=== PATIENT | female | born 1960 | race Caucasian/White ===

== ENCOUNTER 2024-02-10 05:50 | Day surgery (SDC) | payer BC ==
[~2024-02-10] VITALS: Ht 162.6 cm; Wt 93.2 kg
[~2024-02-10 05:50] MED LIST: CELEXA20 MG PO; IBUPROFEN800 MG PO; LACTATED RINGER'S 1,000 ML IV SCH; LEVOTHYROXINE125 MCG PO; MELOXICAM5 MG PO; NORCO 5-325 TA1 EACH PO; TIROSINT100 MCG PO
[2024-02-10 06:11] VITALS: BP 131/67
[2024-02-10] MEDS ORDERED: propofoL 200 MG/20 ML VIAL ONE (06:36)
[2024-02-10] MEDS ORDERED: Ropivacaine HCl 0.5% 30 ML VIAL ONE (06:36)
[2024-02-10] MEDS ORDERED: LIDOCAINE HCL 2% 20 MG/ML VIAL INJ ONE (06:36)
[2024-02-10] MEDS ORDERED: HYDROCODONE/ACETA 5/325 TAB PO PRN (07:00)
[2024-02-10] MEDS ORDERED: CEFAZOLIN SODIUM 2 GM/20 ML SYR IV SCH (07:00)
[2024-02-10] MEDS ORDERED: LIDOCAINE HCL 1% 5 ML SDV INJ ONE (07:00)
[2024-02-10] MEDS ORDERED: IBLOOD GLUCOSE TEST STRIP 1 EA TEST VI PRN ×2 (07:00→08:15)
[2024-02-10] MEDS ORDERED: MIDAZOLAM HCL 2 MG/2 ML VIAL ONE (07:26)
[2024-02-10] MEDS ORDERED: LIDOCAINE HCL 0.5% 50 ML SDV ONE (07:27)
--- NOTE | 2024-02-10 07:34 | NUR ---
VISITED DURING SPIRITUAL CARE ROUNDS. PT APPEARED TO BE SLEEPING. DID NOT DISTURB. PROVIDED PRAYER.
[2024-02-10] MEDS ORDERED: ondansetron HCL 4 MG/2 ML VIAL ONE (07:51)
[2024-02-10] MEDS ORDERED: KETOROLAC TROMETHAMINE 30 MG/ML VIAL ONE (07:54)
[2024-02-10] MEDS ORDERED: NALOXONE HCL 0.4 MG SYR IV PRN (08:15)
[2024-02-10] MEDS ORDERED: fentaNYL citrate 50 MCG/ML SDV IV PRN (08:15)
[2024-02-10] MEDS ORDERED: ondansetron HCL 4 MG/2 ML VIAL IV PRN (08:15)
[2024-02-10] MEDS ORDERED: droPERidol 5 MG/2 ML VIAL IV PRN (08:15)
[2024-02-10] MEDS ORDERED: HYDROCODON-ACE1 EA10 PO (08:20)
--- NOTE | 2024-02-10 08:46 | NUR ---
02/10/24 0846 Azul Marx 0822- PT ARRIVES TO THE PACU WITH A NATURAL AIRWAY, EYES OPEN AND ABLE TO VERBALLY DENY PAIN AND NAUSEA. RESP EVEN AND UNLABORED. PT CONNECTED TO ALL MONITORS. BP CUFF ON LOWER LEG, AND MOVED AFTER READING TO UPPER LEFT ARM. 0825- PT CONTINUES TO DENY PAIN AND NAUSEA. 0835- PT EASILY FALLS ASLEEP AND SMALL AMOUNT OF SNORING NOTED. PT EASILY REACTIVE TO VERBAL STIMULI. PLAN OF CARE DISCUSSED. 0842- PT HOB INCREASED AND SIPPING WATER. PT TOLERATING WELL. ICE PACKS PROVIDED. PT IS TOLERATING WATER WELL. NO PAIN OR NAUSEA NOTED.
[2024-02-10 09:02] VITALS: BP 102/54
--- NOTE | 2024-02-11 10:11 | OR ---
[facility] [address], [place] [address] Signed DATE OF OPERATION: 02/10/2024 SURGEON: Carmen Medina MD PREOPERATIVE DIAGNOSIS: Right long and left ring trigger fingers. POSTOPERATIVE DIAGNOSIS: Right long and left ring trigger fingers. PROCEDURE PERFORMED: Trigger finger release right long, left ring. HEAD OF INSIGHT: None. ANESTHESIA: [place] block. TOURNIQUET TIME: 18 minutes on each side. BRIEF HISTORY: Dell is a 63-year-old female with progressive worsening of locking and triggering in her hands. Risks and benefits of operative treatment were discussed with her. She elected to proceed. DESCRIPTION OF OPERATION: Once consent was obtained, she was taken to the operating room. After adequate anesthesia, she was placed on the operating room table with two hand rachell. We started with the left. This was prepped and draped in a standard sterile fashion after establishing the Fidel block. The ring flexor tendon was then approached through a 1 cm incision in the distal palmar crease, carried through the skin and subcutaneous tissue and directly down on the tendon. The tendon sheath was cleared of the soft tissue volarly and the A1 adry was identified under loupe magnification. It was then released using tenotomy scissors. The patient was asked to move her finger. She was able to fully close and fully extend her finger with no locking or triggering. The wound was copiously irrigated with normal saline, closed with 3-0 nylon and injected with 5 mL 0.25% plain Marcaine. It was then dressed with bacitracin, Adaptic, 4 x 8s, and gauze. Attention was then turned to the right side, which was again placed in a Electronically Signed By: CARMEN MEDINA MD 02/11/24 1011 PATIENT NAME: DELL HELMS OPERATIVE REPORT DATE OF : 60 REPORT #: [id number] PHYSICIAN: CARMEN MEDINA MD PCP: JASSON GRAHAM MD REPORT IS CONFIDENTIAL AND NOT TO BE RELEASED WITHOUT AUTHORIZATION [facility] [address], [place] [address] Signed [place] block and prepped and draped in the standard sterile fashion. A 1 cm incision was made in the distal palmar crease overlying the long finger. The incision was carried through the skin and subcutaneous tissue and directly down the tendon sheath. Again, A1 adry was identified under loupe magnification and was cleared of soft tissue. It was then released using tenotomy scissors. Again, she was asked to move her finger. She was able to fully flex and fully extend with no locking. The wound was then closed with 3-0 nylon, infiltrated with 5 mL 0.25% Marcaine and dressed with bacitracin, Adaptic, 4 x 8s, and gauze. She tolerated the procedure well. All sponge, needle, and instrument counts were correct. Carmen Medina MD BA/DURAN /[id number] Copies: ~ Electronically Signed By: CARMEN MEDINA MD 02/11/24 1011 PATIENT NAME: DELL HELMS OPERATIVE REPORT DATE OF : 60 REPORT #: [id number] PHYSICIAN: CARMEN MEDINA MD PCP: JASSON GRAHAM MD REPORT IS CONFIDENTIAL AND NOT TO BE RELEASED WITHOUT AUTHORIZATION
== END 2024-02-10 09:14 | disposition home or self-care (01) ==
LOC: DS 05:50
PROVIDERS: ATTEND Specialist
PROC: 0LN70ZZ Release Right Hand Tendon, Open Approach (ICD-10-PCS; 2024-02-10)
PROC: 0LN80ZZ Release Left Hand Tendon, Open Approach (ICD-10-PCS; principal; 2024-02-10 08:00)
DX: M65.342 Trigger finger, left ring finger (principal); M65.331 Trigger finger, right middle finger
CPT/HCPCS: J0690; J1885; J2250; J2405; J2704; J2795; J7121

== ENCOUNTER 2024-05-23 07:00 | Day surgery (SDC) | payer BC ==
[2024-05-17 08:35] VITALS: BP 122/77
[~2024-05-23] VITALS: Ht 162.6 cm; Wt 87.3 kg
[~2024-05-23 07:00] MED LIST changes: +HYDROCODON-ACE1 EA10 PO; +IBLOOD GLUCOSE TEST STRIP 1 EA TEST VI PRN; +LIDOCAINE HCL 1% 5 ML SDV INJ ONE; +MIDAZOLAM HCL 5 MG/5 ML VIAL IV PRN; +fentaNYL citrate 100 MCG/2 ML VIAL IV PRN
[2024-05-23] MEDS ORDERED: propofoL 200 MG/20 ML VIAL ONE (07:03)
[2024-05-23 07:08] VITALS: BP 122/58
--- NOTE | 2024-05-23 07:27 | NUR ---
VISITED DURING SPIRITUAL CARE ROUNDS. PT SUPPORTED BY IN ROOM. BOTH IN OVERALL GOOD SPIRITS, MINIMAL ANXIETY. OIL DISTRIBUTOR PROVIDED SUPPORTIVE PRESENCE, HOSPITALITY, PRAYER, FACILITATED INTERACTION WITH THERAPY ANIMAL. PT AND EXPRESSED GRATITUDE, HOPE.
[2024-05-23] MEDS ORDERED: LACTATED RINGER'S 1,000 ML IV ONE (08:13)
--- NOTE | 2024-05-23 08:31 | NUR ---
05/23/24 0831 Dalila Gonzalez 0818-PATIENT ARRIVED TO PACU ON 8L MASK NONAROUSABLE RR EVEN ORAL AIRWAY IN PLACE. SR HR 60'S IVF INFUSING. ABDOMEN SOFT LAYING LEFT LATERAL 0819-PATIENT STARTING TO WINCE FACE AROUSES TO VERBAL SITMULI OPENING EYES ORAL AIRWAY REMOVED. ORIENTED TO PACU PLACED ON 6L MASK RR EVEN 0825-PATIENT AWAKE DROWSY DENIES PAIN OR NAUSEA. PLACED ON RA 100% RR EVEN. ENCOURAGED TO PASS GAS.
[2024-05-23 08:50] VITALS: BP 125/61
--- NOTE | 2024-05-23 11:20 | OR ---
[facility] [address], [place] [address] Signed DATE OF OPERATION: 05/23/2024 SURGEON: Lashon Gallagher MD PREOPERATIVE DIAGNOSES: 1. A personal history of colonic polyps in 2018 at age 56. 2. Diverticulosis. 3. Internal hemorrhoids. POSTOPERATIVE DIAGNOSES: 1. 4 mm polyp on the ileocecal valve. 2. 4 mm polyp at 50 cm in left colon. 3. Minimal sigmoid diverticulosis. 4. Minimal internal hemorrhoids. PROCEDURE: Colonoscopy with hot biopsy. ESTIMATED BLOOD LOSS: None. INDICATIONS: Dell is a 63-year-old female asked to see me for followup colonoscopy. I helped her with her initial colonoscopy for guaiac positive stool back in 2018 at the age of 56. She had one tubular adenomatous polyp and three hyperplastic polyps removed. They were all less than 10 mm in diameter. She also had some diverticulosis and internal hemorrhoids. She took 10 mg of Versed and 175 mcg of fentanyl. She has no lower GI complaints currently. No family history of colon cancer or polyps. More recently, she was tested and found to be positive for obstructive sleep apnea. She has been declining the CPAP mask. In the office, I gave her a pamphlet on colonoscopy. We reviewed the nature of the test. There is risk including, but not limited to gas bloating, crampy abdominal pain, bleeding, perforation requiring surgery, and missed diagnosis. We also reviewed the written instructions for a bowel prep line by line. We also reviewed the need for monitored anesthesia care given her sleep apnea and body habitus along with her prior use of rather significant amounts of Versed and fentanyl. She understands an adult person has to take her home. She had expressed understanding and wished to proceed. DESCRIPTION OF PROCEDURE: Dell was taken into the endoscopy suite, placed in the left lateral decubitus position. Electronically Signed By: LASHON GALLAGHER MD 05/23/24 1120 PATIENT NAME: DELL HELMS OPERATIVE REPORT DATE OF : 60 REPORT #: [id number] PHYSICIAN: LASHON GALLAGHER MD PCP: JASSON GRAHAM MD REPORT IS CONFIDENTIAL AND NOT TO BE RELEASED WITHOUT AUTHORIZATION [facility] [address], [place] [address] Signed She was given monitored anesthesia care propofol infusion per our nurse chicken dresser. A digital rectal exam was performed. This was unremarkable. There were no external hemorrhoids. She had good sphincter tone. There were no masses. The adult colonoscope was introduced and advanced all the way around into the cecum under direct visualization of camera without difficulty. Her prep was quite excellent. We could easily see the appendiceal orifice and ileocecal valve. The scope was then slowly withdrawn. We took pictures throughout for photodocumentation. We took two tiny polyps out of the colon. One at the ileocecal valve, the other at 50 cm. We used a hot biopsy forceps. She does have some diverticula in the sigmoid colon. They were small to moderate in size, few in number and scattered about. Once we retroflexed the scope, she does have minimal internal hemorrhoid columns. After this, the gas was suctioned out, colonoscope removed. Dell tolerated the procedure quite well. RECOMMENDATIONS: Dell will follow up my office in 7 to 14 days to review her results. I suspect she will stay on the five year plan. She did well with the propofol, although she was moving around even with the IV turned up all the way. Lashon Gallagher MD ALB/MODL /[id number] cc: MD Lashon Sean MD Patient Chart Copies: JASSON GRAHAM MD, ANDREW L MD ~ Electronically Signed By: LASHON GALLAGHER MD 05/23/24 1120 PATIENT NAME: DELL HELMS OPERATIVE REPORT DATE OF : 60 REPORT #: [id number] PHYSICIAN: LASHON GALLAGHER MD PCP: JASSON GRAHAM MD REPORT IS CONFIDENTIAL AND NOT TO BE RELEASED WITHOUT AUTHORIZATION
--- NOTE | 2024-05-25 12:05 | PATH ---
[facility] [address] [facility] [place] [address] Signed SPECIMEN(S): A ILEOCECAL VALVE POLYP SPECIMEN(S): B DESCENDING COLON POLYP AT 50 CM SPECIMEN SOURCE: A. ILEOCECAL VALVE POLYP B. DESCENDING COLON POLYP AT 50 CM CLINICAL HISTORY: Adenomatous polyp of colon FINAL PATHOLOGIC DIAGNOSIS: A. Ileocecal valve polyp, polypectomy: - Polypoid colonic mucosa with lymphoid aggregate, negative for dysplasia. B. Descending colon polyp at 50 cm, polypectomy: - Hyperplastic polyp. DDF MICROSCOPIC EXAMINATION: Histologic sections of all submitted blocks are examined by light microscopy. These findings, together with the gross examination, support the pathologic diagnosis. GROSS DESCRIPTION: A. The specimen, labeled and designated "Young, ileocecal valve polyp," is received in formalin and consists of one saez soft tissue fragment, 0.2 cm. Entirely submitted in (A1). B. The specimen, labeled and designated "Young, descending colon polyp at 50 cm," is received in formalin and consists of one saez soft tissue fragment, 0.2 cm. Entirely submitted in (B1). JS (under the direct supervision of a pathologist) The Gross Description was prepared using a voice recognition system. The report was reviewed for accuracy; however, sound-alike word errors, addition and/or deletions may occur. If there is any question about this report, please contact Client Services. ADDITIONAL NOTES: Immunohistochemical and/or in situ hybridization studies if performed in this case included appropriate positive controls that reacted as expected. This test was developed and its performance characteristics determined by [facility]. It has not been cleared or approved by the U.S. Food and Drug Administration. The FDA has determined that PATIENT NAME: DELL HELMS PATHOLOGY DATE OF : 60 REPORT #: [id number] PHYSICIAN: VALERIO RIVERA PCP: JASSON GRAHAM MD REPORT IS CONFIDENTIAL AND NOT TO BE RELEASED WITHOUT AUTHORIZATION [facility] [address] [place], [place] [address] Signed such clearance or approval is not necessary. This test is used for clinical purposes. It should not be regarded as investigational or for research. [facility] is certified under the Clinical Laboratory Improvement Amendments of 1988 (CLIA) as qualified to perform high complexity clinical laboratory testing. PERFORMING LABORATORY: Technical component was performed by [facility], [address] [place] [id number] (CLIA# [id number]). Professional interpretation was performed by [facility] - [facility], [address] [place] [address] (CLIA#: [id number]). Diagnostician: Nj Russo DO Pathologist Electronically Signed 05/25/2024 Copies: ~ PATIENT NAME: DELL HELMS PATHOLOGY DATE OF : 60 REPORT #: [id number] PHYSICIAN: [facility] PCP: JASSON GRAHAM MD REPORT IS CONFIDENTIAL AND NOT TO BE RELEASED WITHOUT AUTHORIZATION
== END 2024-05-23 09:00 | disposition home or self-care (01) ==
LOC: DS 07:00
PROVIDERS: ATTEND Colon & Rectal Surgery
PROC: 0DBG8ZZ Excision of Left Large Intestine, Via Natural or Artificial Opening Endoscopic (ICD-10-PCS; 2024-05-23)
PROC: 0DBC8ZZ Excision of Ileocecal Valve, Via Natural or Artificial Opening Endoscopic (ICD-10-PCS; principal; 2024-05-23 08:05)
DX: Z12.11 Encounter for screening for malignant neoplasm of colon (principal); K63.5 Polyp of colon; K63.89 Other specified diseases of intestine; K57.30 Diverticulosis of large intestine without perforation or abscess without bleeding; K64.8 Other hemorrhoids; G47.33 Obstructive sleep apnea (adult) (pediatric); E89.0 Postprocedural hypothyroidism; E66.3 Overweight; Z68.35 Body mass index [BMI] 35.0-35.9, adult; Z86.0101 Personal history of adenomatous and serrated colon polyps; Z79.890 Hormone replacement therapy; Z79.899 Other long term (current) drug therapy
CPT/HCPCS: 00811; J2704; J7121